=== PATIENT | male | born 1985 | race Two or more races ===

== ENCOUNTER 2024-11-14 07:20 | Emergency (ER) | payer SELFPAY ==
[2024-11-14 07:51] LABS: BASOPHILS ABSOLUTE AUTO 0.0 K/mm3 (0.0-0.2); BASOPHILS PERCENT AUTO 0.8 % (0.0-1.0); EOSINOPHILS ABSOLUTE AUTO 0.1 K/mm3 (0.0-0.4); EOSINOPHILS PERCENT AUTO 1.6 % (0.0-6.0); IMMATURE GRAN ABSOLUTE AUTO 0.02 K/mm3 (0.00-0.05); IMMATURE GRAN PERCENT AUTO 0.4 % (0.0-0.4); LYMPHOCYTES ABSOLUTE AUTO 1.6 K/mm3 (1.0-4.8); LYMPHOCYTES PERCENT AUTO 32.0 % (24.0-44.0); MEAN PLATELET VOLUME 11.0 fl (9.4-12.4); MONOCYTES ABSOLUTE AUTO 0.4 K/mm3 (0.0-0.8); MONOCYTES PERCENT AUTO 8.0 % (0.0-8.0); NEUTROPHILS ABSOLUTE AUTO 2.9 K/mm3 (1.8-7.7); NEUTROPHILS PERCENT AUTO 57.2 % (41.0-71.0); NRBC ABSOLUTE 0.00 (0.00-0.02); NRBC PERCENT 0.0 % (0.0-0.2); PLATELET COUNT,PLT 203 K/mm3 (150-400); RED BLOOD CELL COUNT 5.49 M/mm3 (4.52-5.90); WHITE BLOOD CELL COUNT,WBC 5.03 K/mm3 (3.9-11.3)
[2024-11-14] MEDS: Ondansetron 4 MG/2 ML SDV IVPUSH ONE (08:01)
[2024-11-14 08:07] LABS: BUPRENORPHINE SCREEN,URINE NEGATIVE (CUTOFF=10); METHADONE SCREEN, URINE NEGATIVE (CUT0FF=200); METHAMPHETAMINES SCREEN, URINE NEGATIVE (CUTOFF=500); OXYCODONE SCREEN,URINE NEGATIVE (CUT0FF=100); THC SCREEN,URINE 20 NG/ML NEGATIVE (CUTOFF=50)
[2024-11-14 08:11] LABS: INR 0.95
[2024-11-14 08:13] LABS: PTT,PARTIAL THROMBOPLSTIN TIME 27.2 SECONDS (21.7-31.4)
[2024-11-14 08:15] LABS: AMPHETAMINES SCREEN, URINE NEGATIVE (CUTOFF=500)
[2024-11-14 08:18] LABS: A/G RATIO 1.1 (1-2); ALANINE AMINOTRANSFERASE,ALT 46.0 U/L (16-63); ASPARTATE AMNIOTRANSFERASE,AST 24.0 U/L (15-37); BILIRUBIN TOTAL 0.3 mg/dL (0.2-1.0); BLOOD UREA NITROGEN,BUN 15.0 mg/dL (7-18); CARBON DIOXIDE,CO2 28.0 mEq/L (21-32); CHLORIDE,CL 105.0 mEq/L (98-107); CREATININE 1.2 mg/dL (0.7-1.3); EST CRCL DRUG DOSING (CG) 83.65 mL/min; ESTIMATED GFR 78.0 mL/min (>60); GLUCOSE RANDOM 121.0 mg/dL (70-99); POTASSIUM,K 3.9 mEq/L (3.5-5.1); PROTEIN TOTAL,TP 7.8 g/dl (6.4-8.2); SODIUM,NA 140.0 mEq/L (136-145); TROPONIN I HIGH SENSITIVITY 41.0 pg/mL (<=76)
[2024-11-14 08:19] LABS: CREATINE KINASE,CK 416.0 U/L (39-308); ETHANOL BLOOD MEDICAL 0.0 gm% (0.00)
[2024-11-14] MEDS: Sodium Chloride 0.9% 10 ML Syringe FLUSH PRN ×2 (08:23→09:59)
[2024-11-14] MEDS: Iopamidol 755 Mg/ML 100 ML Bottle IVPUSH ONE (08:23)
[2024-11-14] MEDS ORDERED: Thiamine 200 MG/2 ML MDV IVPUSH STA (08:32)
[2024-11-14 09:21] LABS: CHOLESTEROL HDL 55.0 mg/dL (40-59); CHOLESTEROL LDL DIRECT 124.0 mg/dL (<100); CHOLESTEROL TOTAL 208.0 mg/dL (<200); TSH 1.74 uIU/mL (0.358-3.74)
[2024-11-14] MEDS: Gadobenate Dimeglumine 529 MG/ML 20 ML SDV IVPUSH ONE (09:59)
== END 2024-11-14 15:00 | disposition home or self-care (01) ==
LOC: JD.ED 07:20
DX: I63.9 Cerebral infarction, unspecified (principal); E78.5 Hyperlipidemia, unspecified; I10 Essential (primary) hypertension; Z86.16 Personal history of COVID-19; Z79.82 Long term (current) use of aspirin; Z79.899 Other long term (current) drug therapy
CPT/HCPCS: 36415; 70450; 70496; 70498; 70553; 80053; 80061; 80306; 80307; 82550; 82947; 83036; 83735; 84443; 84484; 85025; 85610; 85652; 85730; 86140; 93005; 93246; 93306; 96361; 96365; 99285; A9270; A9577; J3411; J7030; J7050; Q9967